=== PATIENT | female | born 1950 | race Caucasian/White ===

== ENCOUNTER → 2023-12-28 06:19 | Day surgery (SDC) | payer MEDICARE, SELFPAY | LOC: GI 06:19 | PROVIDERS: ATTENDING PHYSICIAN Internal Medicine Gastroenterology | DX: Z12.11 Encounter for screening for malignant neoplasm of colon (principal); D12.0 Benign neoplasm of cecum; K57.30 Diverticulosis of large intestine without perforation or abscess without bleeding | CPT/HCPCS: 45385; 88305 ==

== ENCOUNTER → 2024-02-14 14:11 | Outpatient (REF) | payer MEDICARE, SELFPAY | LOC: WDC 14:11 | PROVIDERS: ATTENDING PHYSICIAN Obstetrics & Gynecology | DX: Z12.31 Encounter for screening mammogram for malignant neoplasm of breast (principal) | CPT/HCPCS: 77063; 77067 ==

== ENCOUNTER 2024-09-24 11:42 | Emergency (ER) | payer MEDICARE, SELFPAY ==
[2024-09-24 11:50] VITALS: BP 168/95
--- NOTE | 2024-09-24 13:20 | ED.GENMED ---
History of Present Illness
General
Chief Complaint: Fall
Time Seen by Provider: 09/24/24 12:12
History of Present Illness
History of Present Illness:
73-year-old female presents the emergency department for evaluation of head and neck pain after falling off a stepstool in her house. Slipped while getting out of bed and fell backwards striking her head on the ground. No LOC. Reports diffuse
neck pain, no upper extremity paresthesias. Does not take any anticoagulants
Past History
Past History
ED Past Medical History: Cancer (BCC) and GERD
ED Past Surgical History: None
Social History
Tobacco: Non-smoker
Review of Systems
Review of Systems
Allergies reviewed?: Yes
All Other Systems: ROS reviewed and negative except as documented in HPI and ROS
Phy Exam
Physical Exam
Physical Exam:
GEN: Well appearing, NAD, WDWN
HEENT: Oral mucosa moist, no scleral icterus, no nasal congestion. Mild midline cervical spine tenderness inferiorly, no palpable deformities
Cardiac: Regular rate
Lung: No respiratory distress, no tachypnea
MSK: No gross deformity or injuries
Skin: Good color, no pallor or jaundice, no rashes
Neuro: AO x3; CN II-XII grossly intact. BUE strength 5/5 in all dee, sensation intact and symmetric. BLE strength 5/5 in all dee, sensation intact and symmetric
Psych: Calm, cooperative
Course
Orders/Labs/Results
Orders:
Orders
09/24/24 11:55
CT Cervical Spine W/o Iv Contr Urgent
Comment:
Reason For Exam: fall
CT Head W/o Iv Contrast Urgent
Comment:
Reason For Exam: fall
Vital Signs
Initial and Last Documented VS:
Initial Vital Signs
Temp Pulse Resp BP Pulse Ox
98.0 F 90 16 168/95 97
09/24/24 11:50 09/24/24 11:50 09/24/24 11:50 09/24/24 11:50 09/24/24 11:50
Last Documented Vital Signs
Temp Pulse Resp BP Pulse Ox
98.0 F 90 16 168/95 97
09/24/24 11:50 09/24/24 11:50 09/24/24 11:50 09/24/24 11:50 09/24/24 11:50
MDM/Problems Addressed
MDM/Problems Addressed:
Imaging is unremarkable and she has no upper extremity neurologic symptoms concerning for cord injury. Discussed supportive care for soft tissue injuries
*Critical Care Note
Total Time (30-74mins, 75-104mins- exclusive of procedures): Not Applicable
ED Attending Note
-
Portions of this chart may have been created with voice recognition software.� Occasional wrong word or��sound alike� substitutions may have occurred due to the inherent limitations of voice recognition software.
Discharge Plan
Departure
Patient Disposition: Home (Routine Discharge)
Date of Disposition: 09/24/24
Time of Disposition: 13:21
Patient with high blood pressure during this ER visit?: No
Discharge Problem:
Fall, CHI (closed head injury), Acute cervical myofascial strain
Instructions: Head Injury in Adults (DC), Cervical Sprain ED
Prescriptions:
No Action
omeprazole 20 MG capsule,delayed release(DR/EC)
20 mg PO DAILY
pyridoxine (vitamin B6) [Vitamin B-6] 100 MG tablet
100 mg PO DAILY
hetqwgel-rpd-ZZ-lycopen-lutein [Centrum Silver] 1 EACH tablet
1 ea PO DAILY
Benefiber
2 tsp PO DAILY
Cholesta Care
40 mg PO BID
Probiotic
1 tab PO DAILY
Interventions
Interventions:
*Risk Screen - Suicide Last Done: 09/24/24 11:50
*General Assessment Last Done: 09/24/24 11:50
*Neglect/Abuse Screening Last Done: 09/24/24 11:50
*ED COVID-19 Vaccine History Last Done: 09/24/24 11:50
*Nursing Disposition Last Done: 09/24/24 13:30
Discharge Date and Time
Discharge Date/Time: 09/24/24 13:50
Print Language: GEORGIAN
== END 2024-09-24 13:50 | disposition home or self-care (01) ==
LOC: EMR 11:42
PROVIDERS: EMERGENCY PHYSICIAN Student in an Organized Health Care Education/Training Program
DX: S09.90XA Unspecified injury of head, initial encounter (principal); S16.1XXA Strain of muscle, fascia and tendon at neck level, initial encounter; W11.XXXA Fall on and from ladder, initial encounter
CPT/HCPCS: 99284; 70450; 72125

== ENCOUNTER → 2025-03-11 13:02 | Outpatient (REF) | payer MEDICARE, SELFPAY | LOC: WDC 13:02 | PROVIDERS: ATTENDING PHYSICIAN Obstetrics & Gynecology | DX: Z12.31 Encounter for screening mammogram for malignant neoplasm of breast (principal) | CPT/HCPCS: 77063; 77067 ==